=== PATIENT | male | born 1935 | race Caucasian/White ===

== ENCOUNTER 2018-09-16 12:14 | Inpatient (IN) | payer OTHER ==
[~2018-09-16] VITALS: Ht 177.8 cm; Wt 83.0 kg
--- NOTE | 2018-09-16 12:16 | NUR ---
JEFF OLEARY, CURRENTLY AWAITING BED WHICH IS BEING CLEANED
[2018-09-16 12:22] VITALS: BP 130/72
--- NOTE | 2018-09-16 12:55 | NUR ---
brought in [facility] facility reports pt has had frequent falls x weeks fell attempting to get a blanket x yesterday witnessed by room mate pt denies pain---full clear speech, moving all extremities, no facial asymmetry noted at this time ambulatory with assistance (usually on wheelchair)
[2018-09-16 13:23] LABS: APPEARANCE,URINE CLEAR (CLEAR); BILIRUBIN,URINE NEGATIVE (NEGATIVE); BLOOD, URINE 2+ (NEGATIVE); COLOR,URINE YELLOW (YELLOW); LEUKOCYTE ESTERASE ,URINE NEGATIVE (NEGATIVE); NITRITE, URINE NEGATIVE (NEGATIVE); PH,URINE 5.5 (5.0-9.0); UGLUCOSE NEGATIVE (NEGATIVE)
[2018-09-16 13:46] LABS: RBC,URINE 11-20 (MOD) /HPF (0-5); WBC,URINE 0-5 (RARE) /HPF (0-5)
--- NOTE | 2018-09-16 14:14 | NUR ---
LAB AT BEDSIDE.
[2018-09-16 14:34] LABS: BASOPHILS # (AUTO) 0.1 K/uL (0.00-0.22); BASOPHILS % (AUTO) 0.7 % (0.0-2.0); EOSINOPHILS # (AUTO) 0.2 K/uL (0-0.4); EOSINOPHILS % (AUTO) 2.6 % (0.0-4.0); HEMATOCRIT 40.2 % (36-52); HEMOGLOBIN 13.1 g/dL (12.0-18.0); LYMPHOCYTES # (AUTO) 1.4 K/uL (2.0-11.5); LYMPHOCYTES % (AUTO) 16.5 % (20.5-51.1); MEAN CORPUSCULAR HEMOGLOBIN 30 pg (27-31); MEAN CORPUSCULAR HGB CONC 33 g/dL (33-37); MEAN CORPUSCULAR VOLUME 90.4 fL (80-94); MONOCYTES # (AUTO) 0.7 K/uL (0.8-1.0); MONOCYTES % (AUTO) 8.4 % (1.7-9.3); NEUTROPHILS # (AUTO) 6.1 K/uL (1.8-7.7); NEUTROPHILS % (AUTO) 71.8 % (42.2-75.2); PLATELET COUNT (AUTO) 197 K/uL (140-450); RED BLOOD CELL COUNT(AUTO) 4.45 MIL/uL (4.20-6.10); RED CELL DISTRIBUTION WIDTH 15.4 % (11.6-13.7); WHITE BLOOD COUNT (AUTO) 8.5 K/uL (4.8-10.8)
[2018-09-16 14:52] LABS: ALBUMIN 3.7 g/dL (3.4-5.0); ANION GAP 14.9 (8-16); ASPARTATE AMINOTRANSFERASE 10 U/L (15-37); CARBON DIOXIDE 24.8 mmol/L (21-32); CHLORIDE 102 mmol/L (98-107); CREATININE 1.2 mg/dL (0.7-1.3); GLUCOSE 146 mg/dL (74-106); MAGNESIUM 1.7 mg/dL (1.8-2.4); POTASSIUM 4.7 mmol/L (3.5-5.1); SODIUM SERUM 137 mmol/L (136-145); TOTAL BILIRUBIN 0.5 mg/dL (0.0-1.0); URIC ACID 6.4 mg/dL (2.6-7.2)
--- NOTE | 2018-09-16 15:00 | NUR ---
NO NEEDS STATED AT THIS TIME.
[2018-09-16 15:46] LABS: ACETONE, SERUM NEGATIVE (NEGATIVE)
[2018-09-16 15:58] LABS: UREA NITROGEN, BLOOD 24 mg/dL (7-18)
[2018-09-16] MEDS: NACL 0.9% 1,000 ML IV SCH ×2 (16:13→18:45)
[2018-09-16] MEDS ORDERED: INSULIN LISPRO SLIDING SCALE 100 UNITS/ML VIAL SUBQ PRN (16:15)
[2018-09-16] MEDS ORDERED: DEXTROSE 50% 50 ML SYR IVP PRN (16:15)
[2018-09-16] MEDS ORDERED: RANITIDINE HCL PO PRN (16:15)
[2018-09-16] MEDS ORDERED: DOCUSATE SODIUM 100 MG GELCAP PO PRN (16:15)
[2018-09-16] MEDS ORDERED: ONDANSETRON 4 MG/2 ML VIAL IM/IVP PRN (16:15)
--- NOTE | 2018-09-16 16:24 | NUR ---
PATIENT GIVEN ADDITIONAL BLANKET AND URINAL.
[2018-09-16] MEDS: BLOOD GLUCOSE MONITORING 1 DEV DEV FS SCH ×2 (16:30→21:17)
[2018-09-16] MEDS ORDERED: HYDR-5122 PO (16:38)
[2018-09-16] MEDS ORDERED: PYRI-218 PO (16:38)
[2018-09-16] MEDS ORDERED: FERR325E14 PO (16:38)
[2018-09-16] MEDS ORDERED: RANI150T8 PO (16:38)
[2018-09-16] MEDS ORDERED: TAMS0.4C96 PO (16:38)
[2018-09-16] MEDS ORDERED: ATOR20TA PO (16:38)
[2018-09-16] MEDS ORDERED: ASPI-1718 PO (16:38)
[2018-09-16] MEDS ORDERED: LISI40TA4 PO (16:38)
[2018-09-16] MEDS ORDERED: DOCU-299 PO (16:38)
--- NOTE | 2018-09-16 17:18 | NUR ---
PATIENT ARRIVED INTO UNIT FROM ER VIA GURNEY. RECEIVED PT REPORT FROM ER NURSE. 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 PATIENT AAOX 2-3, ABLE TO MAKE NEEDS KNOWN. NO SOB OR RESPIRATORY DISTRESS NOTED. IV SITE ON RIGHT HAND, 20G PATENT AND FLUSHED. SKIN INTACT. VITAL SIGNS ARE FOLLOWS: BP 135/69, RR 18, HR 89, TEMP 97.9 F, O2Sat 100% ON ROOM AIR. SKIN INTACT. NO S/S OF ACUTE DISTRESS ON ROOM AIR. MRSA SWAB DONE. ORIENTED PT TO ROOM AND CALL LIGHT. FALL PRECAUTIONS INITIATED, YELLOW WRIST, YELLOW GOWN, FALL SIGN APPLIED. BED ALARM ON. CALL LIGHT AND PERSONAL ITEMS WITHIN REACH. BED IN LOWEST POSITION, WILL CONTINUE TO MONITOR.
--- NOTE | 2018-09-16 17:24 | NUR ---
Patient will be admitted to care of DR KIM. Admited to MED-SURG. Will go to room 122-B. Belongings list completed. Report to RNHOWARD.
[2018-09-16] MEDS ORDERED: FAMOTIDINE 20 MG TAB PO PRN (17:25)
[2018-09-16] MEDS ORDERED: MAGNESIUM HYDROXIDE 2400 MG/30 ML UDC PO SCH (17:30)
[2018-09-16 17:45] LABS: PHOSPHORUS 3.7 mg/dL (2.5-4.9); THYROID STIMULATING HORMONE 2.48 uIU/mL (0.34-3.74)
[2018-09-16 17:56] VITALS: BP_SYST 135; BP_SYST 139; BP_DIAS 69
--- NOTE | 2018-09-16 18:00 | NUR ---
CALLED [employer] FOR SCD.
--- NOTE | 2018-09-16 18:00 | NUR ---
PT EATING DINNER INDEPENDENTLY. NO S/S OF ACUTE DISTRESS NOTE.
--- NOTE | 2018-09-16 18:10 | NUR ---
PROVIDED PT WITH BEDSIDE COMMODE. PT URINATED X1. PT IS AMB WITH ASSIST. PT RETURNED TO BED SAFELY.
[2018-09-16 18:28] LABS: PROTHROMBIN TIME 9.8 secs (10.8-13.4)
--- NOTE | 2018-09-16 18:35 | NUR ---
PT NOT COOPERATING WITH US TECH. US EXAM STOPPED DURING THE MIDDLE OF EXAM. PT REFUSED THE TEST AT THIS TIME, WILL NOTIFIED .
--- NOTE | 2018-09-16 18:45 | NUR ---
PT REFUSED IVF. EXPLAINED TO PT ABOUT RISK AND BENEFITS. PT STILL REFUSING.
--- NOTE | 2018-09-16 19:30 | NUR ---
ENDORSED PT TO COMBINATION WORKER NURSE. PT IN STABLE CONDITION.
--- NOTE | 2018-09-16 19:31 | NUR ---
RECD. RESTING IN BED, AWAKE, A/OX2, HARD OF HEARING, CONFUSED. IV OF NS AT 60 ML/HR INFUSING, RIGHT HAND G20. BP TAKEN, LYING AND SITTING BUT REFUSED TO STAND UP TO COMPLETE ORTHOSTATIC BP. SAFETY MEASURES ENFORCED. BED ON ALARM. PLAN OF CARE FOR THE SHIFT DISCUSSED. NEEDS REINFORCEMENT. DENIES PAIN 0/10.
--- NOTE | 2018-09-16 19:32 | NUR ---
Patient's Plan of Care was discussed and reviewed with BUSINESS OPERATIONS DIRECTOR: Aliyah RENDON
[2018-09-16 20:00] VITALS: BP 120/80
[2018-09-16 20:02] VITALS: BP 118/67
[2018-09-16 20:30] VITALS: BP 132/69
--- NOTE | 2018-09-16 20:30 | NUR ---
GET OUT OF BED TO USE URINAL WITHOUT CALLING NURSE. FOUND STANDING BY THE BED, HOLDING ON TO SIDES. ASSISTED TO USE URINAL, BACK TO BED AFTER VOIDING. ALLOWED NURSE TO CHECKED BP WHILE STANDING.
[2018-09-16] MEDS ORDERED: FERROUS SULFATE 325 MG TABEC PO SCH (21:00)
[2018-09-16] MEDS: DOCUSATE SODIUM 100 MG GELCAP PO SCH (21:07)
[2018-09-16] MEDS: guaiFENesin 600 MG TABER PO SCH (21:08)
[2018-09-16] MEDS: TAMSULOSIN 0.4 MG CAP PO SCH (21:08)
--- NOTE | 2018-09-16 21:08 | NUR ---
DUE PO MEDICATIONS GIVEN, TOLERATED WELL. SNACK FOR THE NIGHT GIVEN, ATE 100%.
[2018-09-16] MEDS: MAGNESIUM OXIDE 400 MG TAB PO SCH (21:09)
--- NOTE | 2018-09-16 23:30 | NUR ---
FOUND OUT OF BED, SITTING ON THE BSC, HAD A BM. ASSISTED BACK TO BED, SAFETY MAINTAINED.
--- NOTE | 2018-09-17 01:00 | NUR ---
WENT TO BR AGAIN WITHOUT CALLING NURSE, TOOK OFF GOWN. BM ON THE BED AND SOME ON THE SINK. REORIENTED TO HOSPITAL SETTING AND ASSISTED BACK TO BED.
--- NOTE | 2018-09-17 01:40 | NUR ---
INSIDE BR SITTING ON TOILET, ASSISTED BACK TO BED.
[2018-09-17] MEDS: traZODone 50 MG TAB PO SCH ×2 (01:47→01:49)
[2018-09-17] MEDS: HYDROcodone/APAP 5/325 MG 1 TAB TAB PO PRN (01:49)
--- NOTE | 2018-09-17 01:49 | NUR ---
UNABLE TO SLEEP, MEDICATED WITH TRAZODONE ORDERED.
--- NOTE | 2018-09-17 03:30 | NUR ---
STILL GOING OUT OF BED AND SITTING WITH PANTS ON IN THE TOILET BOWL. ASSISTED BACK TO BED, SAFETY MAINTAINED.
--- NOTE | 2018-09-17 03:50 | NUR ---
INFORMED DR. BARBARA SHERIFF DOES NOT WORK FOR PATIENT, WILL ORDER MEDICATION.
--- NOTE | 2018-09-17 05:45 | NUR ---
WENT AGAIN TO BR WITHOUT CALL NURSE. HAD BM, BM ON FLOOR AND TOILET, CLEANSED AND ASSISTED BACK TO BED.
--- NOTE | 2018-09-17 06:00 | NUR ---
CONDITION REMAIN STABLE. SAFETY MAINTAINED DURING SHIFT.
[2018-09-17 06:09] LABS: BASOPHILS # (AUTO) 0.1 K/uL (0.00-0.22); BASOPHILS % (AUTO) 0.8 % (0.0-2.0); EOSINOPHILS # (AUTO) 0.3 K/uL (0-0.4); EOSINOPHILS % (AUTO) 3.7 % (0.0-4.0); HEMATOCRIT 39.8 % (36-52); HEMOGLOBIN 13.1 g/dL (12.0-18.0); LYMPHOCYTES # (AUTO) 1.1 K/uL (2.0-11.5); LYMPHOCYTES % (AUTO) 14.4 % (20.5-51.1); MEAN CORPUSCULAR HEMOGLOBIN 30 pg (27-31); MEAN CORPUSCULAR HGB CONC 33 g/dL (33-37); MEAN CORPUSCULAR VOLUME 89.6 fL (80-94); MONOCYTES # (AUTO) 0.8 K/uL (0.8-1.0); MONOCYTES % (AUTO) 11.1 % (1.7-9.3); NEUTROPHILS # (AUTO) 5.1 K/uL (1.8-7.7); PLATELET COUNT (AUTO) 180 K/uL (140-450); RED BLOOD CELL COUNT(AUTO) 4.44 MIL/uL (4.20-6.10); RED CELL DISTRIBUTION WIDTH 15.2 % (11.6-13.7); WHITE BLOOD COUNT (AUTO) 7.3 K/uL (4.8-10.8)
[2018-09-17 06:39] LABS: ANION GAP 10.9 (8-16); CARBON DIOXIDE 26.9 mmol/L (21-32); CHLORIDE 104 mmol/L (98-107); CREATININE 1.1 mg/dL (0.7-1.3); GLUCOSE 120 mg/dL (74-106); POTASSIUM 4.8 mmol/L (3.5-5.1); SODIUM SERUM 137 mmol/L (136-145); UREA NITROGEN, BLOOD 21 mg/dL (7-18)
[2018-09-17 06:42] LABS: MAGNESIUM 2.2 mg/dL (1.8-2.4); PHOSPHORUS 3.7 mg/dL (2.5-4.9)
--- NOTE | 2018-09-17 07:20 | NUR ---
ENDORSED TO AM SHIFT NURSE FOR CONTINUITY OF CARE.
--- NOTE | 2018-09-17 07:21 | NUR ---
RECEIVED BEDSIDE REPORT FROM STAFF OCCUPATIONAL THERAPIST NURSE. PATIENT AAOX2. PATIENT ON ROOM AIR, NO DISTRESS NOTED. SKIN INTACT. AMBULATES WITH ASSIST, URINAL AT BEDSIDE. PATIENT HARD OF HEARING. SIGNS POSTED. IV ON R WRIST 20 G, CLEAN DRY AND INTACT. FALL RISK PROTOCOL IN PLACE. PATIENT ON MED SURG. BED IN LOW POSITION, CALL LIGHT WITHIN REACH. WILL CONTINUE TO MONITOR.
[2018-09-17] MEDS: BLOOD GLUCOSE MONITORING 1 DEV DEV FS SCH ×4 (07:32→21:09)
[2018-09-17 08:00] VITALS: BP 104/71
--- NOTE | 2018-09-17 08:07 | NUR ---
PATIENT HAS BEEN SCREENED AND CATEGORIZED MODERATE NUTRITION RISK. PATIENT WILL BE SEEN WITHIN 3-5 DAYS OF ADMISSION. 09/19/18LARRY [address]
[2018-09-17] MEDS: NACL 0.9% 1,000 ML IV SCH (08:53)
[2018-09-17] MEDS ORDERED: LISINOPRIL 20 MG TAB PO SCH (09:00)
[2018-09-17] MEDS ORDERED: NON-FORMULARY ITEM (Lisinopril 40 MG) PO SCH (09:00)
[2018-09-17] MEDS: DOCUSATE SODIUM 100 MG GELCAP PO SCH ×2 (09:00→21:10)
[2018-09-17] MEDS ORDERED: ATORVASTATIN 20 MG TAB PO SCH (09:00)
[2018-09-17 09:07] LABS: TRANSFERRIN 256 mg/dL (200-370)
[2018-09-17] MEDS: ASPIRIN 81 MG TAB.CHEW PO SCH (10:11)
[2018-09-17] MEDS: PYRIDOXINE 50 MG TAB PO SCH (10:12)
[2018-09-17] MEDS: MAGNESIUM OXIDE 400 MG TAB PO SCH ×2 (10:13→21:10)
[2018-09-17] MEDS: guaiFENesin 600 MG TABER PO SCH ×2 (10:13→21:10)
[2018-09-17] MEDS: FLUTICASONE NASAL 50 MCG/ACTUATION 16 GM BTL NS SCH (10:14)
--- NOTE | 2018-09-17 10:24 | NUR ---
ADMINISTERED SCHEDULED MEDS. COMMUNICATED WITH PATIENT THROUGH WRITING. PATIENT VERBALIZED UNDERSTANDING. WILL CONTINUE TO MONITOR.
--- NOTE | 2018-09-17 14:27 | NUR ---
CM NOTE PER GILSON OF [facility] PH# [phone], PATIENT IS ON A 7 DAY BED HOLD. GILSON FAXED A COPY OF THE ADVANCE DIRECTIVE WHICH WAS PLACED ON PATIENT'S CHART WHICH STATED THAT INDIVIDUAL DESIGNATED TO MAKE HEALTH CARE DECISIONS: ANKUSH WALLACE OR LEELA WALLACE PH# [phone] AND [phone]. I INFORMED GILSON OF [facility] REGARDING THE ORDER FOR HEARING AID BATTERY AND GILSON CONFIRMED THAT SHE IS AWARE SHE SAID SHE WILL WORK ON IT.
[2018-09-17 15:10] LABS: FERRITIN 34 ng/mL (30-400)
[2018-09-17 16:00] VITALS: BP 147/66
--- NOTE | 2018-09-17 16:00 | NUR ---
PATIENT PULLED OUT IV. IV TIP INTACT. APPLIED DRESSING TO OLD IV SITE. WILL RE INSERT NEW IV.
--- NOTE | 2018-09-17 18:58 | NUR ---
INSERTED NEW IV ON R FA INFUSING NS AT 60. IV CLEAN DRY AND INTACT. PATIENT TOLERATING FLUIDS WELL. WILL CONTINUE TO MONITOR.
--- NOTE | 2018-09-17 19:26 | NUR ---
GAVE REPORT TO BUSINESS CONTINUITY MANAGER NURSE. PATIENT ENDORSED IN STABLE CONDITION.
--- NOTE | 2018-09-17 19:30 | NUR ---
RECEIVED REPORT FROM DAYSHIFT NURSE AT BEDSIDE FOR CONTINUITY OF CARE. PT AAOX3. PT IV NOTED RFA 20G NS 60ML/HR. NO SOB NO S/S OF DISTRESS ON RA. BED LOWERED CALL LIGHT WITHIN REACH WILL CONTINUE TO MONITOR.
[2018-09-17] MEDS: TAMSULOSIN 0.4 MG CAP PO SCH (21:10)
[2018-09-18] VITALS: BP 96/46
--- NOTE | 2018-09-18 00:36 | NUR ---
PT PULLED OUT IV. CHANGED GOWN AND LINENS D/T BLOOD STAINS. NEW IV LFA 22G SALINE LOCK. PER MD JIMENEZ IT IS OK FOR PT TO BE SALINE LOCK THROUGH THE NIGHT WILL CONTINUE TO MONITOR. AND RE START FLUIDS IN THE MORNING.
[2018-09-18] MEDS: NACL 0.9% 1,000 ML IV SCH ×2 (01:33→18:13)
[2018-09-18 06:20] LABS: BASOPHILS % (AUTO) 0.6 % (0.0-2.0); EOSINOPHILS # (AUTO) 0.3 K/uL (0-0.4); EOSINOPHILS % (AUTO) 4.3 % (0.0-4.0); HEMATOCRIT 38.9 % (36-52); HEMOGLOBIN 12.9 g/dL (12.0-18.0); LYMPHOCYTES # (AUTO) 1.1 K/uL (2.0-11.5); LYMPHOCYTES % (AUTO) 15.1 % (20.5-51.1); MEAN CORPUSCULAR HEMOGLOBIN 30 pg (27-31); MEAN CORPUSCULAR HGB CONC 33 g/dL (33-37); MEAN CORPUSCULAR VOLUME 89.7 fL (80-94); MONOCYTES # (AUTO) 0.8 K/uL (0.8-1.0); MONOCYTES % (AUTO) 10.5 % (1.7-9.3); NEUTROPHILS # (AUTO) 5.1 K/uL (1.8-7.7); NEUTROPHILS % (AUTO) 69.5 % (42.2-75.2); PLATELET COUNT (AUTO) 172 K/uL (140-450); RED BLOOD CELL COUNT(AUTO) 4.34 MIL/uL (4.20-6.10); RED CELL DISTRIBUTION WIDTH 15.1 % (11.6-13.7); WHITE BLOOD COUNT (AUTO) 7.4 K/uL (4.8-10.8)
[2018-09-18 06:26] LABS: ANION GAP 6.8 (8-16); CHLORIDE 110 mmol/L (98-107); CREATININE 1.1 mg/dL (0.7-1.3); GLUCOSE 118 mg/dL (74-106); POTASSIUM 4.8 mmol/L (3.5-5.1); SODIUM SERUM 139 mmol/L (136-145); UREA NITROGEN, BLOOD 21 mg/dL (7-18)
[2018-09-18] MEDS: BLOOD GLUCOSE MONITORING 1 DEV DEV FS SCH ×4 (06:30→20:28)
[2018-09-18 06:32] LABS: MAGNESIUM 2.1 mg/dL (1.8-2.4); PHOSPHORUS 3.9 mg/dL (2.5-4.9)
--- NOTE | 2018-09-18 07:26 | NUR ---
ENDORSED REPORT TO DAYSHIFT NURSE AT BEDSIDE FOR CONTINUITY OF CARE.
--- NOTE | 2018-09-18 07:32 | NUR ---
RECEIVED BEDSIDE REPORT FROM TNT POWDER WORKER RN. PT IS AWAKE IN BED, RESPIRATIONS EVEN AND UNLABORED. AOX2. DENIES PAIN AND DISCOMFORT. PT IS AMBULATORY WITH WALKER. SKIN INTACT. IV SITE PATENT AND ASYMPTOMATIC, WILL CONNECT TO IVF PER MD ORDERS. ALL SAFETY PRECAUTIONS IN PLACE, WILL CONTINUE TO MONITOR.
[2018-09-18 08:00] VITALS: BP 121/54
[2018-09-18] MEDS: FLUTICASONE NASAL 50 MCG/ACTUATION 16 GM BTL NS SCH (09:48)
[2018-09-18] MEDS: MAGNESIUM OXIDE 400 MG TAB PO SCH (09:49)
[2018-09-18] MEDS: ASPIRIN 81 MG TAB.CHEW PO SCH (09:49)
[2018-09-18] MEDS: DOCUSATE SODIUM 100 MG GELCAP PO SCH ×2 (09:49→20:26)
[2018-09-18] MEDS: LISINOPRIL 20 MG TAB PO SCH (09:50)
[2018-09-18] MEDS: PYRIDOXINE 50 MG TAB PO SCH (09:50)
[2018-09-18] MEDS: guaiFENesin 600 MG TABER PO SCH ×2 (09:50→20:26)
--- NOTE | 2018-09-18 12:45 | NUR ---
ADMISSION LIASON AT [facility] ([facility]) HAS TAKEN PATIENT'S HEARING AIDES PER PATIENT REQUEST. PT DOES NOT WANT TO LOSE THE HEARING AID AND THE BATTERY IS . PATIENT'S CHOICE [facility] DOES NOT HAVE HEARING AID BATTERY AVAILABLE.
--- NOTE | 2018-09-18 13:05 | NUR ---
PT REQUESTED HIS IV TO BE OFF, EXPLAINED VERY IMPORTANT, PT INSISTED, TALKED TO NURSE GREG TO FOLLOW UP
--- NOTE | 2018-09-18 13:06 | NUR ---
TRY CALLING SON [phone] , PHONE BUSY, PT WANTS TO TALKED SONGERG
--- NOTE | 2018-09-18 14:15 | NUR ---
PATIENT CONTINUES TO REFUSE IVF.
[2018-09-18] MEDS: ACETAMINOPHEN 325 MG TAB PO PRN (14:22)
[2018-09-18 16:00] VITALS: BP 120/59
--- NOTE | 2018-09-18 17:58 | NUR ---
PT CONFUSED AND STATES THAT HEAT TREATER FROM [employer] AGREED TO BRING BATTERIES FOR HEARING AID. RE-ORIENTED PATIENT, TOLD HIM THAT [facility] HEAT TREATER HAS TAKEN HEARING AID FOR SAFE-KEEPING.
--- NOTE | 2018-09-18 19:13 | NUR ---
ENDORSED POC TO MANAGER DIGITAL RN AT BEDSIDE. PT IN STABLE CONDITION.
--- NOTE | 2018-09-18 19:15 | NUR ---
RECEIVED REPORT FROM DAYSHIFT NURSE AT BEDSIDE FOR CONTINUITY OF CARE. PT AAOX3. PT IV NOTED LFA 22G SALINE LOCK. NO SOB NO S/S OF DISTRESS ON RA. BED LOWERED CALL LIGHT WITHIN REACH WILL CONTINUE TO MONITOR
[2018-09-18] MEDS: TAMSULOSIN 0.4 MG CAP PO SCH (20:26)
[2018-09-18 23:40] VITALS: BP 120/54
--- NOTE | 2018-09-19 | NUR ---
PT SLEEPING NO SOB NO S/S OF DISTRESS ON RA.
[2018-09-19 06:15] LABS: BASOPHILS # (AUTO) 0.1 K/uL (0.00-0.22); BASOPHILS % (AUTO) 0.5 % (0.0-2.0); EOSINOPHILS # (AUTO) 0.2 K/uL (0-0.4); EOSINOPHILS % (AUTO) 2.1 % (0.0-4.0); HEMATOCRIT 40.1 % (36-52); HEMOGLOBIN 13.4 g/dL (12.0-18.0); LYMPHOCYTES # (AUTO) 1.5 K/uL (2.0-11.5); LYMPHOCYTES % (AUTO) 15.4 % (20.5-51.1); MEAN CORPUSCULAR HEMOGLOBIN 30 pg (27-31); MEAN CORPUSCULAR HGB CONC 33 g/dL (33-37); MEAN CORPUSCULAR VOLUME 89.9 fL (80-94); NEUTROPHILS # (AUTO) 7.1 K/uL (1.8-7.7); PLATELET COUNT (AUTO) 181 K/uL (140-450); RED BLOOD CELL COUNT(AUTO) 4.45 MIL/uL (4.20-6.10); RED CELL DISTRIBUTION WIDTH 15.4 % (11.6-13.7); WHITE BLOOD COUNT (AUTO) 9.8 K/uL (4.8-10.8)
[2018-09-19] MEDS: HYDROcodone/APAP 5/325 MG 1 TAB TAB PO PRN (06:34)
[2018-09-19] MEDS: BLOOD GLUCOSE MONITORING 1 DEV DEV FS SCH ×2 (06:48→12:13)
--- NOTE | 2018-09-19 06:54 | NUR ---
PLAN OF CARE D/C BACK TO [place] WITH PT.
--- NOTE | 2018-09-19 07:05 | NUR ---
ENDORSED REPORT TO DAYSHIFT NURSE AT BEDSIDE FOR CONTINUITY OF CARE.
--- NOTE | 2018-09-19 07:13 | NUR ---
RECEIVED BEDSIDE REPORT FROM APPLICATION DBA RN. PT IS SLEEPING IN BED, RESPIRATIONS EVEN AND UNLABORED, AROUSABLE BY VOICE. AOX2. DENIES PAIN AND DISCOMFORT. PT IS AMBULATORY WITH WALKER. SKIN INTACT. IV SITE PATENT AND ASYMPTOMATIC, ON SL. IS AWARE. ALL SAFETY PRECAUTIONS IN PLACE, WILL CONTINUE TO MONITOR.
[2018-09-19 07:50] LABS: ANION GAP 16.1 (8-16); CARBON DIOXIDE 21.9 mmol/L (21-32); CHLORIDE 103 mmol/L (98-107); CREATININE 1.2 mg/dL (0.7-1.3); GLUCOSE 114 mg/dL (74-106); SODIUM SERUM 136 mmol/L (136-145); UREA NITROGEN, BLOOD 23 mg/dL (7-18)
[2018-09-19 07:53] LABS: MAGNESIUM 2.3 mg/dL (1.8-2.4); PHOSPHORUS 3.9 mg/dL (2.5-4.9)
[2018-09-19 08:00] VITALS: BP 121/52
[2018-09-19] MEDS: LISINOPRIL 20 MG TAB PO SCH (09:40)
[2018-09-19] MEDS: guaiFENesin 600 MG TABER PO SCH (09:41)
[2018-09-19] MEDS: ASPIRIN 81 MG TAB.CHEW PO SCH (09:41)
[2018-09-19] MEDS: PYRIDOXINE 50 MG TAB PO SCH (09:41)
[2018-09-19] MEDS: FLUTICASONE NASAL 50 MCG/ACTUATION 16 GM BTL NS SCH (09:42)
[2018-09-19] MEDS: DOCUSATE SODIUM 100 MG GELCAP PO SCH (09:42)
[2018-09-19] MEDS: NACL 0.9% 1,000 ML IV SCH (10:01)
[2018-09-19] MEDS ORDERED: FLONAS NS (10:27)
[2018-09-19] MEDS ORDERED: GLUC-805 FS (10:27)
[2018-09-19] MEDS ORDERED: GUAI-791 PO (10:27)
[2018-09-19] MEDS ORDERED: HUMSLIDE SUBQ (10:27)
[2018-09-19] MEDS ORDERED: LISI-420 PO (10:27)
--- NOTE | 2018-09-19 11:59 | NUR ---
1130 CALLED AND SPOKE WITH GILSON AT [facility] AND INFORMED HER THAT PATIENT WILL DISCHARGE BACK TO FACILITY TODAY. PER GILSON PATIENT CAN GO TO ROOM 38B. CLINICALS FAXED TO [phone] AND PHONE [phone]. CALLED [facility] [phone] AND SET UP W/C TRANSPORT AND CANE FLUME WATCHMAN TIME IS 1630. 1200 ASSIGNED NURSE GREG INFORMED OF TRANSFER ARRANGEMENTS.
--- NOTE | 2018-09-19 13:24 | NUR ---
PT REFUSED ECHO ON 09-18-18 STATING HE HAD AN ECHO IN [place]. AGAIN TODAY 09-19-18 HE REPEATED THE SAME STATEMENT SAYING THAT HE ALREADY HAD HIS HEART CHECKED AT [facility] AND THE DOCTOR THERE SAID 'HIS HEART IS OK". HALEY GARZA AND DR. WHITLOCK NOTIFIED.
--- NOTE | 2018-09-19 13:28 | NUR ---
CALLED PERSON TO NOTIFY RAINER RODRIGO [phone] TO NOTIFY HER OF PLAN TO TRANSFER TO [place] AT 1630 TODAY. DISCONNECTED TONE FOR THIS NUMBER. WILL TRY AGAIN LATER.
--- NOTE | 2018-09-19 13:36 | NUR ---
NOTIFIED DR. WHITLOCK OF [facility] IN CHART (DNR).
--- NOTE | 2018-09-19 14:34 | NUR ---
GAVE REPORT FROM FAM DE LEON FROM [facility]. REVIEWED PATIENT'S CC, DX, IMAGING, VITALS, PLAN OF CARE. PT TO RECEIVE FURTHER PT AT [facility]. FAM DE LEON AWARE THAT [facility] COMMUNICATION INSTRUCTOR HAD TAKEN PT'S HEARING AID YESTERDAY. FAM DE LEON VERBALIZE COMPLETE UNDERSTANDING OF ALL D/C TEACHING AND PLAN OF CARE.
--- NOTE | 2018-09-19 14:57 | NUR ---
LEFT MESSAGE FOR SON ANKUSH WOODZ II [phone] REGARDING PLANS TO TRANSFER PT TO [place] AT 1630 TODAY.
[2018-09-19] MEDS: ACETAMINOPHEN 325 MG TAB PO PRN (15:32)
--- NOTE | 2018-09-19 15:33 | NUR ---
MORGAN LECHUGA [facility] [phone] CALLED BACK. REVIEWED D/C TEACHING AND NEW RX AND MED RECON WITH SON. MORGAN LECHUGA VERBALIZED COMPLETE UNDERSTANDING.
--- NOTE | 2018-09-19 16:03 | NUR ---
RECEIVED AUTH# [id number] FROM [facility] AND CALLED TO [facility].
--- NOTE | 2018-09-19 16:30 | NUR ---
PATIENT PICKED UP BY [facility]. ALL PERSONAL BELONGINGS WITH PT. PT IN STABLE CONDITION.
== END 2018-09-19 16:30 | DRG 73 ==
LOC: MED 12:14 → MTU 16:13
PROVIDERS: ADMIT General Practice; ATTEND General Practice
DX: G90.9 Disorder of the autonomic nervous system, unspecified (principal); G93.41 Metabolic encephalopathy; R26.81 Unsteadiness on feet; F03.90 Unspecified dementia, unspecified severity, without behavioral disturbance, psychotic disturbance, mood disturbance, and anxiety; J32.0 Chronic maxillary sinusitis; R31.9 Hematuria, unspecified; D50.9 Iron deficiency anemia, unspecified; E83.42 Hypomagnesemia; I10 Essential (primary) hypertension; E78.5 Hyperlipidemia, unspecified; K21.9 Gastro-esophageal reflux disease without esophagitis; E86.0 Dehydration; N40.0 Benign prostatic hyperplasia without lower urinary tract symptoms; G89.29 Other chronic pain; W18.30XA Fall on same level, unspecified, initial encounter; S70.02XA Contusion of left hip, initial encounter; M16.12 Unilateral primary osteoarthritis, left hip; J32.2 Chronic ethmoidal sinusitis; K59.00 Constipation, unspecified; F28 Other psychotic disorder not due to a substance or known physiological condition; H91.91 Unspecified hearing loss, right ear; E87.8 Other disorders of electrolyte and fluid balance, not elsewhere classified; E11.65 Type 2 diabetes mellitus with hyperglycemia; N28.1 Cyst of kidney, acquired; Z79.82 Long term (current) use of aspirin; Z79.899 Other long term (current) drug therapy; Y93.89 Activity, other specified; Y92.89 Other specified places as the place of occurrence of the external cause; Y99.8 Other external cause status; Z79.84 Long term (current) use of oral hypoglycemic drugs; H26.9 Unspecified cataract
CPT/HCPCS: 36415; 70450; 71045; 73502; 76770; 80048; 80053; 81001; 81003; 82009; 82140; 82150; 82550; 82728; 82948; 83036; 83540; 83690; 83735; 83880; 84100; 84443; 84484; 84550; 85025; 85045; 85610; 85730; 87081; 87086; 87804; 93005; 93880; 97110; 97116; 97530; 99285; J1815; J7030; Q0092

== ENCOUNTER 2019-05-26 15:01 | Inpatient (IN) | payer OTHER ==
[~2019-05-26] VITALS: Ht 165.1 cm; Wt 53.1 kg
[~2019-05-26 15:01] MED LIST: ASPI-1718 PO; DOCU-299 PO; FLONAS NS; GUAI-791 PO; HYDR-5122 PO; LISI-420 PO; PYRI-218 PO; RANI150T8 PO; TAMS0.4C96 PO
[2019-05-26 15:06] VITALS: BP 117/62
[2019-05-26] MEDS ORDERED: NACL 0.9% 500 ML IV SCH (15:10)
[2019-05-26] MEDS ORDERED: LORazepam 2 MG/ML VIAL IVP ONE ×2 (15:10→18:55)
[2019-05-26] MEDS ORDERED: KETOROLAC 30 MG/ML VIAL IVP ONE (15:10)
--- NOTE | 2019-05-26 15:20 | NUR ---
KELSEY W C/O BLADDER DISCOMFORT FROM [facility]. PT IS SCREAMING/YELLING ON ARRIVAL. PT IS ALERT TO NAME, PLACE. PT STATES HE IS UNABLE TO URINATE, BUT HE HAD ALREADY URINATED ON HIMSELF/HIS CLOTHES. ABDOMEN IS SOFT/FLAT, TENDER TO PALPATION IN PUBIC AREA. PT HAX HX OF DEMENTIA. BED IN LOW POSITION, SIDE RAIL UP X2 FOR PT SAFTEY. BEDSIDE STUDIO ASSISTANT & GOWN PLACED ON PT AT THIS TIME.
[2019-05-26] MEDS ORDERED: MULT15LI1 GT (15:22)
[2019-05-26] MEDS ORDERED: ASCO500W4 PO (15:22)
[2019-05-26] MEDS ORDERED: DIT5 PO (15:22)
[2019-05-26] MEDS ORDERED: ZINC220C12 PO (15:22)
[2019-05-26] MEDS ORDERED: ACET-2619 PO (15:22)
--- NOTE | 2019-05-26 15:35 | NUR ---
# 16 FR Neely catheter sterile technique. Immediate return of 400 ml YELLOW urine noted. Bedside drainage bag placed below level of bladder. Urine sample collected and sent to lab. Pt tolerated procedure WELL.
[2019-05-26 15:37] LABS: BASOPHILS % (AUTO) 0.6 % (0.0-2.0); EOSINOPHILS # (AUTO) 0.2 K/uL (0-0.4); EOSINOPHILS % (AUTO) 2.5 % (0.0-4.0); HEMATOCRIT 34.6 % (36-52); HEMOGLOBIN 11.1 g/dL (12.0-18.0); LYMPHOCYTES # (AUTO) 1.6 K/uL (2.0-11.5); LYMPHOCYTES % (AUTO) 22.1 % (20.5-51.1); MEAN CORPUSCULAR HEMOGLOBIN 26 pg (27-31); MEAN CORPUSCULAR HGB CONC 32 g/dL (33-37); MEAN CORPUSCULAR VOLUME 80.6 fL (80-94); MONOCYTES # (AUTO) 0.7 K/uL (0.8-1.0); MONOCYTES % (AUTO) 10.3 % (1.7-9.3); NEUTROPHILS # (AUTO) 4.7 K/uL (1.8-7.7); NEUTROPHILS % (AUTO) 64.5 % (42.2-75.2); PLATELET COUNT (AUTO) 234 K/uL (140-450); RED BLOOD CELL COUNT(AUTO) 4.29 MIL/uL (4.20-6.10); RED CELL DISTRIBUTION WIDTH 19.2 % (11.6-13.7); WHITE BLOOD COUNT (AUTO) 7.2 K/uL (4.8-10.8)
[2019-05-26 16:16] LABS: ANION GAP 14.1 (8-16); CARBON DIOXIDE 22.2 mmol/L (21-32); CHLORIDE 100 mmol/L (98-107); CREATININE 1.2 mg/dL (0.7-1.3); GLUCOSE 135 mg/dL (74-106); POTASSIUM 4.3 mmol/L (3.5-5.1); SODIUM SERUM 132 mmol/L (136-145); UREA NITROGEN, BLOOD 24 mg/dL (7-18)
[2019-05-26 16:19] LABS: PROTHROMBIN TIME 9.5 secs (10.8-13.4)
[2019-05-26 16:31] LABS: ALBUMIN 3.4 g/dL (3.4-5.0); ASPARTATE AMINOTRANSFERASE 11 U/L (15-37); TOTAL BILIRUBIN 0.4 mg/dL (0.0-1.0)
--- NOTE | 2019-05-26 16:50 | NUR ---
PT ASLEEP IN BED, AROUSABLE TO VERBAL STIMULI
[2019-05-26 17:09] LABS: APPEARANCE,URINE CLOUDY (CLEAR); BILIRUBIN,URINE NEGATIVE (NEGATIVE); BLOOD, URINE 2+ (NEGATIVE); COLOR,URINE YELLOW (YELLOW); LEUKOCYTE ESTERASE ,URINE 2+ (NEGATIVE); NITRITE, URINE NEGATIVE (NEGATIVE); UGLUCOSE NEGATIVE (NEGATIVE)
[2019-05-26 17:18] LABS: RBC,URINE 11-20 (MOD) /HPF (0-5)
--- NOTE | 2019-05-26 17:30 | NUR ---
PT LEFT TO CT
[2019-05-26] MEDS ORDERED: LEVOFLOXACIN 500 MG/D5W PREMIX 100 ML IV ONE (17:40)
--- NOTE | 2019-05-26 17:40 | NUR ---
PT RETURNED FROM CT
[2019-05-26] MEDS ORDERED: ACETAMINOPHEN 325 MG TAB PO PRN (18:30)
[2019-05-26] MEDS ORDERED: ONDANSETRON 4 MG/2 ML VIAL IVP PRN (18:30)
--- NOTE | 2019-05-26 18:50 | NUR ---
PT ASLEEP, AROUSABLE TO VERBAL STIMULI
--- NOTE | 2019-05-26 19:22 | NUR ---
Patient will be admitted to care of DR. KIM. Admited to MED SURG. Will go to room 107-B. Belongings list completed. Report to HALEY ROMERO.
[2019-05-26 19:26] LABS: FREE T4 (FREE THYROXINE) 0.82 ng/dL (0.76-1.46); MAGNESIUM 1.8 mg/dL (1.8-2.4); PHOSPHORUS 3.7 mg/dL (2.5-4.9); THYROID STIMULATING HORMONE 3.96 uIU/mL (0.34-3.74)
--- NOTE | 2019-05-26 19:30 | NUR ---
Admitted from ED, with chief complaint of UNABLE TO URINATE, HEMATURIA. Pt is 84 y/o ,Male, Uncooperative, Screaming and Yelling uncontrollably. Asked pt what's wrong, pt continues to scream. Pt's Neely catheter draining well. Pt oriented to call light, bed, phone,television, bathroom, smoking policy, visiting hours, procedures, ID bracelet on. Belongings list checked. Will continue to monitor. Bed alarm turned on.
[2019-05-26] MEDS ORDERED: HYDROcodone/APAP 5/325 MG 1 TAB TAB PO PRN (19:50)
[2019-05-26 20:00] VITALS: BP 116/59
--- NOTE | 2019-05-26 20:25 | NUR ---
INITIAL ASSESSMENT DONE. VITAL SIGNS CHECKED. PT CONTINUES TO SCREAM AND YELL. THEN PT ASKED FOR COFFEE. MEDICATIONS GIVEN INCLUDING PAIN MEDICATION. TEACHINGS PROVIDED. PT ABLE TO SWALLOW MEDICATIONS WELL. PHILLIPS CATHETER DRAINING ADEQUATE AMOUNT OF CLEAR, YELLOW URINE. WILL CONTINUE TO MONITOR.
[2019-05-26] MEDS: OXYBUTYNIN 5 MG TAB PO SCH (20:31)
[2019-05-26] MEDS: DOCUSATE SODIUM 100 MG GELCAP PO SCH (20:32)
[2019-05-26] MEDS ORDERED: TAMSULOSIN 0.4 MG CAP PO SCH (21:00)
[2019-05-26] MEDS ORDERED: DOCUSATE SODIUM 100 MG GELCAP PO SCH (21:00)
[2019-05-26] MEDS ORDERED: cefTRIAXone 500 MG VIAL ONE (22:08)
[2019-05-26] MEDS: OLANZapine 2.5 MG TAB PO SCH (22:20)
[2019-05-26] MEDS: DEXT 5% /NACL 0.9% 1,000 ML IV SCH (22:20)
--- NOTE | 2019-05-26 22:20 | NUR ---
PT STARTED SCREAMING AGAIN. IVF AND IV ANTIBIOTIC STARTED ORDERED. OLANZAPINE GIVEN WELL W/ TEACHINGS. PT ABLE TO SWALLOW THE PILL AND THEN RIGHT AFTER STARTS TO SCREAM AGAIN. PT REPOSITIONED COMFORTABLY. WILL CONTINUE TO MONITOR.
--- NOTE | 2019-05-26 22:45 | NUR ---
SPOKE TO DR HERNANDEZ REGARDING PT'S YELLING AND SCREAMING FOR PAIN. SHE SAID, "I ALREADY ORDERED ZYPREXA." TOLD HER, IT WAS ALREADY GIVEN AND PT IS COMPLAINING OF SEVERE PAIN ON HIS BLADDER. SHE SAID, "OK I'LL PUT ORDER IN."
[2019-05-26] MEDS: HYDROcodone/APAP 7.5/325 MG 1 TAB PO PRN (23:41)
[2019-05-27] MEDS ORDERED: HALOPERIDOL IM 5 MG/ML VIAL IM SCH (00:15)
--- NOTE | 2019-05-27 00:32 | NUR ---
CALLED AND SPOKE TO DR HERNANDEZ REGARDING PT STILL SCREAMING AND YELLING W/ PAIN. SHE SAID " I'LL COME OVER."
[2019-05-27] MEDS ORDERED: MORPHINE SULFATE 2 MG/ML SYR IVP SCH (01:00)
--- NOTE | 2019-05-27 01:20 | NUR ---
HEARD PT'S BED ALARM. SEEN PT TRYING TO GET UP AND TRYING TO PULL OUT HIS PHILLIPS CATHETER. PT ORIENTED TO TIME, PLACE AND EVENT. PT REPOSITIONED FOR COMFORT. AFTERWARDS, PT STARTED TO SLEEP AND SNORE. BED ALARM ON. WILL CONTINUE TO MONITOR.
--- NOTE | 2019-05-27 02:25 | NUR ---
PT'S BED ALARMED. PT'S GOWN OFF, PT TRYING TO GET UP AND PULL HIS PHILLIPS CATHETER. PT REORIENTED AND REPOSITIONED IN BED. BED ALARM TURNED ON. WILL CONTINUE TO MONITOR.
[2019-05-27 04:20] VITALS: BP 129/58
--- NOTE | 2019-05-27 04:30 | NUR ---
SEEN PT SLEEPING COMFORTABLY BUT AROUSABLE TO TOUCH AND MOVEMENT. VITAL SIGNS CHECKED. NO DISCOMFORT NOTED. BED ALARM REMAINS ON. WILL CONTINUE TO MONITOR.
--- NOTE | 2019-05-27 06:50 | NUR ---
PT STARTED SCREAMING AND YELLING NOW TRYING TO GET UP. PT SAYING HE'S IN PAIN. PT MEDICATED W/ MORPHINE IVPX1 ORDERED. WILL REASSESS BEHAVIOR DUE TO PAIN. WILL ENDORSE CARE TO DAYSHIFT NURSE.
[2019-05-27] MEDS ORDERED: HYDROcodone/APAP 5/325 MG 1 TAB TAB PO PRN (07:05)
--- NOTE | 2019-05-27 07:24 | NUR ---
RECEIVED REPORT FROM MUSIC REHABILITATION THERAPIST NURSE/ PT IS AAOX1. PT IV IN THE LEFT FA 20G RUNNING D5NS AT 80ML/HR. PT SKIN IS INTACT. PT EXHIBITING SIGNS OF CONFUSION. PT BED ALARM ACTIVATED FOR SAFETY. ATTEMPTED TO EXPLAIN POC TO PT BUT PT SEEMS WITHDRAWN AND CONFUSED. WILL ROUND FREQUENTLY ON PT. BED IN LOW POSITION, CALL LIGHT WITHIN REACH.
[2019-05-27 07:44] LABS: BASOPHILS % (AUTO) 0.7 % (0.0-2.0); EOSINOPHILS # (AUTO) 0.3 K/uL (0-0.4); EOSINOPHILS % (AUTO) 5.3 % (0.0-4.0); HEMATOCRIT 33.2 % (36-52); HEMOGLOBIN 10.6 g/dL (12.0-18.0); LYMPHOCYTES # (AUTO) 0.8 K/uL (2.0-11.5); LYMPHOCYTES % (AUTO) 12.7 % (20.5-51.1); MEAN CORPUSCULAR HEMOGLOBIN 26 pg (27-31); MEAN CORPUSCULAR HGB CONC 32 g/dL (33-37); MEAN CORPUSCULAR VOLUME 81.2 fL (80-94); MONOCYTES # (AUTO) 0.7 K/uL (0.8-1.0); MONOCYTES % (AUTO) 12.2 % (1.7-9.3); NEUTROPHILS # (AUTO) 4.1 K/uL (1.8-7.7); NEUTROPHILS % (AUTO) 69.1 % (42.2-75.2); PLATELET COUNT (AUTO) 209 K/uL (140-450); RED BLOOD CELL COUNT(AUTO) 4.09 MIL/uL (4.20-6.10); RED CELL DISTRIBUTION WIDTH 19.1 % (11.6-13.7)
[2019-05-27 07:58] LABS: ANION GAP 12.1 (8-16); CARBON DIOXIDE 24.6 mmol/L (21-32); CHLORIDE 104 mmol/L (98-107); CREATININE 1.1 mg/dL (0.7-1.3); GLUCOSE 99 mg/dL (74-106); POTASSIUM 4.7 mmol/L (3.5-5.1); SODIUM SERUM 136 mmol/L (136-145); UREA NITROGEN, BLOOD 23 mg/dL (7-18)
[2019-05-27 08:00] VITALS: BP 123/52
[2019-05-27 08:09] LABS: MAGNESIUM 1.8 mg/dL (1.8-2.4); PHOSPHORUS 3.3 mg/dL (2.5-4.9)
--- NOTE | 2019-05-27 08:22 | NUR ---
PATIENT HAS BEEN SCREENED AND CATEGORIZED HIGH NUTRITION RISK. PATIENT WILL BE SEEN WITHIN 1-2 DAYS OF ADMISSION. 05/27/19-05/28/[address]
--- NOTE | 2019-05-27 09:28 | NUR ---
WAS NOT ABLE TO ADMINISTER SCHEDULED MEDS TO PT. PT VERY DROWSY. WILL ATTEMPT AGAIN LATER.
[2019-05-27] MEDS: DEXT 5% /NACL 0.9% 1,000 ML IV SCH (10:57)
--- NOTE | 2019-05-27 11:47 | NUR ---
PT STILL DROWSY. WILL REATTEMPT HORSE RANCHER LATER.
[2019-05-27] MEDS: LISINOPRIL 20 MG TAB PO SCH (12:43)
[2019-05-27] MEDS: LACTOBACILLUS RHAMNOSUS GG 1 EACH CAP PO SCH (12:43)
[2019-05-27] MEDS: ASPIRIN 81 MG TAB.CHEW PO SCH (12:43)
[2019-05-27] MEDS: ZINC SULF 220 MG CAP PO SCH (12:43)
[2019-05-27] MEDS: PHENAZOPYRIDINE 100 MG TAB PO SCH ×3 (12:43→17:40)
[2019-05-27] MEDS: DOCUSATE SODIUM 100 MG GELCAP PO SCH ×2 (12:44→21:38)
[2019-05-27] MEDS: ASCORBIC ACID 500 MG TAB PO SCH (12:44)
--- NOTE | 2019-05-27 12:51 | NUR ---
1300 SCHEDULED PYRIDIUM NOT ADMINISTERED DUE TO ADMINISTERING MORNING MEDS AT 1250. PT TOLERATED ALL MORNING MEDS FINE. NO SWALLOWING DIFFICULTY. WILL CONTINUE TO ROUND FREQUENTLY ON PT.
--- NOTE | 2019-05-27 13:04 | NUR ---
DC'D ALAN PER MD ORDERS. WILL ASSESS PT FOR URINATION ABILITY. PT VERY AGITATED AT THIS TIME. MD ORDERED ATIVAN IV TO CALM PT. WILL ADMIN.
[2019-05-27] MEDS: LORazepam 2 MG/ML VIAL IVP PRN ×2 (13:30→22:04)
--- NOTE | 2019-05-27 15:33 | NUR ---
05/27/19 RD INITIAL ASSESSMENT COMPLETED PLEASE REFER TO NUTRITION ASSESSMENT UNDER CARE ACTIVITY FOR ESTIMATED NUTRITIONAL NEEDS. 1. CONTINUE PUREE REGULAR DIET TOLERATED 2. RECOMMEND ENSURE BID 3. RD TO FOLLOW-UP 2-3 DAYS, HIGH RISK LARRY FORTUNE RD
--- NOTE | 2019-05-27 15:44 | NUR ---
PT WAS YELLING OUT. WENT TO CHECK ON PT. DID BLADDER SCAN ON PT. SCAN SHOWING 263ML. MD AWARE OF FINDINGS. WILL REASSESS BLADDER IN 1HR. PER MD ORDERS, WILL GIVE NORCO FOR PAIN.
[2019-05-27] MEDS ORDERED: DEXT 5% /NACL 0.9% 1,000 ML IV SCH (15:45)
--- NOTE | 2019-05-27 15:52 | NUR ---
WENT TO GIVE PAIN MEDS TO PT. PT SLEEPING IN BED. WILL HOLD MEDS UNTIL PT EXHIBITS NEED FOR PAIN MEDS.
[2019-05-27 16:00] VITALS: BP 136/78
[2019-05-27] MEDS: NACL 0.9% 1,000 ML IV SCH (17:35)
[2019-05-27] MEDS: HYDROcodone/APAP 7.5/325 MG 1 TAB PO PRN (18:22)
--- NOTE | 2019-05-27 18:58 | NUR ---
PT RESTING IN BED. ALL NEEDS MET. WILL CONTINUE TO ROUND FREQUENTLY ON PT.
--- NOTE | 2019-05-27 19:22 | NUR ---
ENDORSED PT TO MEDICAL OFFICE SPECIALIST FOR CONTINUITY OF CARE. PT IN STABLE CONDITION AT THIS TIME.
--- NOTE | 2019-05-27 20:00 | NUR ---
ASSUMED CARE. RECEIVED AWAKE,CONFUSED. AFEBRILE, NOT IN ACUTE DISTRESS. NO PAIN OR DISCOMFORT NOTED. VS STABLE, WILL CONTINUE TO MONITOR. NEEDS ATTENDED.
[2019-05-27] MEDS: OXYBUTYNIN 5 MG TAB PO SCH (21:36)
[2019-05-27] MEDS: OLANZapine 2.5 MG TAB PO SCH (21:36)
[2019-05-27] MEDS: TAMSULOSIN 0.4 MG CAP PO SCH (21:37)
--- NOTE | 2019-05-27 21:43 | NUR ---
DUE MEDICATIONS GIVEN SCHEDULED.
--- NOTE | 2019-05-27 22:04 | NUR ---
PT.VERY RESTLESS. RIPPED HIS IV TUBING OFF AND TRIED GETTING OUT OF BED. ATIVAN 2 MG IVP GIVEN ORDERED.
[2019-05-28] VITALS: BP 114/63
--- NOTE | 2019-05-28 | NUR ---
ASLEEP, NOT IN ANY KIND OF DISTRESS. NO PAIN OR DISCOMFORT NOTED. CT OF [place] TO BE DONE AT 0630 PER LOG STACKER OPERATOR TOBIAS. OK WITH RESIDENT DIRECTOR OF STRATEGIC PROGRAMS. PT.REMAINS STABLE.
--- NOTE | 2019-05-28 05:20 | NUR ---
AM LABS DRAWN BY GEEK SQUAD MANAGER.
--- NOTE | 2019-05-28 06:40 | NUR ---
PT. VERY CONFUSED, PULLED OUT IV LINE. GAUGE 18 IV LINE ESTABLISHED TO THE LEFT WRIST.
[2019-05-28 06:41] LABS: ANION GAP 14.2 (8-16); CARBON DIOXIDE 24.1 mmol/L (21-32); CHLORIDE 108 mmol/L (98-107); GLUCOSE 112 mg/dL (74-106); POTASSIUM 5.3 mmol/L (3.5-5.1); SODIUM SERUM 141 mmol/L (136-145); UREA NITROGEN, BLOOD 15 mg/dL (7-18)
[2019-05-28 06:55] LABS: MAGNESIUM 1.8 mg/dL (1.8-2.4); PHOSPHORUS 3.9 mg/dL (2.5-4.9)
[2019-05-28] MEDS: LORazepam 2 MG/ML VIAL IVP PRN (06:55)
--- NOTE | 2019-05-28 06:55 | NUR ---
ATIVAN 2 MG IVP GIVEN FOR AGITATION/RESTLESSNESS.
[2019-05-28 07:10] LABS: BASOPHILS % (AUTO) 0.5 % (0.0-2.0); EOSINOPHILS # (AUTO) 0.1 K/uL (0-0.4); EOSINOPHILS % (AUTO) 0.9 % (0.0-4.0); HEMATOCRIT 37.4 % (36-52); LYMPHOCYTES # (AUTO) 1.2 K/uL (2.0-11.5); LYMPHOCYTES % (AUTO) 13.2 % (20.5-51.1); MEAN CORPUSCULAR HEMOGLOBIN 26 pg (27-31); MEAN CORPUSCULAR HGB CONC 32 g/dL (33-37); MEAN CORPUSCULAR VOLUME 81.3 fL (80-94); MONOCYTES # (AUTO) 0.8 K/uL (0.8-1.0); MONOCYTES % (AUTO) 8.7 % (1.7-9.3); NEUTROPHILS # (AUTO) 6.8 K/uL (1.8-7.7); NEUTROPHILS % (AUTO) 76.7 % (42.2-75.2); PLATELET COUNT (AUTO) 242 K/uL (140-450); RED CELL DISTRIBUTION WIDTH 18.7 % (11.6-13.7); WHITE BLOOD COUNT (AUTO) 8.9 K/uL (4.8-10.8)
--- NOTE | 2019-05-28 07:42 | NUR ---
ENDORSED CARE TO DELVIN DE LEON.
--- NOTE | 2019-05-28 07:46 | NUR ---
RECEIVED BEDSIDE REPORT FROM NATIONAL SALES DIRECTOR RN FOR CONTINUITY OF CARE FROM YESTERDAY. PT IN STABLE CONDITION. BED IN LOW POSITION, CALL LIGHT WITHIN REACH. WILL ROUND FREQUENTLY ON PT.
[2019-05-28 08:25] VITALS: BP 106/85
--- NOTE | 2019-05-28 09:34 | NUR ---
MORNING MEDS NOT ADMINISTERED DUE TO PT BEING VERY SLEEPY. ATIVAN GIVEN BY HYDRANT SETTER. WILL CONTINUE TO ROUND FREQUENTLY ON TP. WILL RETRY TO ADMIN MEDS LATER. BED IN LOW POSITION, CALL LIGHT WITHIN REACH.
[2019-05-28] MEDS: ZINC SULF 220 MG CAP PO SCH (11:06)
[2019-05-28] MEDS: ASPIRIN 81 MG TAB.CHEW PO SCH (11:07)
[2019-05-28] MEDS: DOCUSATE SODIUM 100 MG GELCAP PO SCH ×2 (11:07→20:55)
[2019-05-28] MEDS: LISINOPRIL 20 MG TAB PO SCH (11:07)
[2019-05-28] MEDS: LACTOBACILLUS RHAMNOSUS GG 1 EACH CAP PO SCH (11:07)
[2019-05-28] MEDS: ASCORBIC ACID 500 MG TAB PO SCH (11:07)
[2019-05-28] MEDS: PHENAZOPYRIDINE 100 MG TAB PO SCH ×2 (11:16→13:00)
--- NOTE | 2019-05-28 11:32 | NUR ---
ADMINISTERED MORNING MEDS TO PT WITH SPEECH THERAPIST AT BEDSIDE. SPEECH THERAPIST HERE TO COMPLETE SWALLOW EVAL ON PT. PT HAD DIFFICULTY SWALLOWING MEDS. NO CHOKING WAS NOTED BUT PT HELD MEDS IN MOUTH FOR 35MINS. HAD DIFFICULTY HAVING PT SWALLOW PILLS. AWARE. ORDERED TO GIVE PT MEDS ONLY WHEN FULLY AWAKE AND COOPERATIVE.
--- NOTE | 2019-05-28 11:55 | NUR ---
CHANNEL CEMENTER OUTSOLE MACHINE note [phone]. Bedside swallow evaluation completed, please see report for details. CHANNEL CEMENTER OUTSOLE MACHINE provided pt with education regarding purpose of evaluation and rationale for recommendations. Pt primarily lethargic with limited responses. No family/caregivers present. Recommend: 1) pureed textures 2) thin liquids 3) STRICT aspiration precautions (including pt must be fully awake/alert/upright for any PO intakes, alternate small/slow bites and sips, stop giving PO if pt becomes less alert/SOB/coughing) 4) CHANNEL CEMENTER OUTSOLE MACHINE to f/u for dysphagia therapy to continue to assess pt's ability to take PO safely for 1-2 x week x 2 weeks, as pt willing/able to participate safely, as appropriate CHANNEL CEMENTER OUTSOLE MACHINE d/w RN (Sally) prior to and following evaluation completion. RN present to administer oral medications (whole in pudding) during more than half of swallow evaluation. Pt was positioned fully upright in bed using HOB elevation and bed tilt functions for evaluation and then returned to low/locked bed position with HOB about 40 degrees following evaluation completion.
--- NOTE | 2019-05-28 12:52 | NUR ---
SCREEN FOR LOW ROXANNE SCALE AT RISK, CONTINUE TO FOLLOW PRESSURE ULCER PREVENTION INTERVENTIONS. -TURN AND REPOSITION PATIENT Q 2H -ASSESS AND MONITOR SKIN CONDITION DURING POSITION CHANGE -OFFLOAD BILATERAL HEELS BY PLACING PILLOWS UNDER CALVES AT ALL TIMES, UNLESS OTHERWISE CONTRAINDICATED -PRESSURE REDISTRIBUTION BY PLACING PILLOWS AND OFFLOADING SACRALCOCCYX -KEEP SKIN CLEAN AND DRY AT ALL TIMES.
--- NOTE | 2019-05-28 13:47 | NUR ---
PT SLEEPING IN BED. ALL NEEDS MET. NO SIGNS OF PAIN OR DISTRESS. WILL CONTINUE TO ROUND FREQUENTLY ON PT.
[2019-05-28 15:16] LABS: FOLIC ACID 9.9 ng/mL (>3.0)
--- NOTE | 2019-05-28 15:34 | NUR ---
PT SLEEPING. ALL NEEDS MET. WILL NOT ADMINISTER MEDS UNTIL PT IS FULLY AWARE NAD COOPERATIVE. MD AWARE
[2019-05-28] MEDS ORDERED: LACTULOSE 20 GM/30 ML UDC PO SCH (15:40)
[2019-05-28 16:00] VITALS: BP 132/69
[2019-05-28] MEDS: NACL 0.9% 1,000 ML IV SCH (16:25)
[2019-05-28 16:31] LABS: CARBON DIOXIDE 24.3 mmol/L (21-32); CHLORIDE 106 mmol/L (98-107); GLUCOSE 101 mg/dL (74-106); POTASSIUM 4.3 mmol/L (3.5-5.1); SODIUM SERUM 140 mmol/L (136-145); UREA NITROGEN, BLOOD 14 mg/dL (7-18)
--- NOTE | 2019-05-28 17:47 | NUR ---
PT ASLEEP. ALL NEEDS MET. BED LINENS CHANGED. WILL CONTINUE TO ROUND ON PT.
[2019-05-28] MEDS ORDERED: PHENAZOPYRIDINE 100 MG TAB PO SCH (18:00)
[2019-05-28] MEDS: CHLORHEXADINE GLUC 2% CLOTH TP SCH (18:20)
[2019-05-28] MEDS: MUPIROCIN CA NASAL 2% 1GM TUBE NS SCH (18:20)
[2019-05-28] MEDS ORDERED: HALOPERIDOL IM 5 MG/ML VIAL IM ONE (18:35)
--- NOTE | 2019-05-28 18:49 | NUR ---
SPOKE WITH . WILL HOLD HALDOL IM ORDER STANDING ORDER FOR EXTREME NEED. PT CALM AT THIS TIME AND NO NEED TO GIVE MEDICATION. WILL ENDORSE TO EMBEDDED SYSTEMS DESIGNER TO ONLY GIVE MED IF PT IS TRYING TO GET OUT OF BED AND RISK OF INJURY.
--- NOTE | 2019-05-28 19:34 | NUR ---
ENDORSED PT TO DIRECTOR RADIATION ONCOLOGY FOR CONTINUITY OF CARE. PT IN STABLE CONDITION AT THIS TIME.
--- NOTE | 2019-05-28 20:00 | NUR ---
RECEIVED REPORT FROM AM SHIFT. PT IS AWAKE ALERT X2, PT IS CONFUSED,FOLLOW SIMPLE COMMAND, NO S/S OF PAIN OR DISCOMFORT AT THIS TIME. NO S/S OF RESP DISTRESS,NO SOB. CONT ON ROOM AIR. BILATERAL LUNG SOUND CLEAR.ABD SOFT NON DISTENDED. IV LINE TO LFA NO 20 GAUGE INTACT WELL. IV NS AT 30 CC/HR. CONTINUE ON SITTER WATCH.NO EPISODE TRYING TO OUT OF BED AT THIS TIME.SKIN WARM TO TOUCH. V/S T 99.5,B/P 100/58,HR 88,R 20 SPO2 97%. SKIN INTACT,PT IS INCONTINENT BOWEL AND BLADDER.GENTLE CARE GIVEN . KEPT CLEAN AND DRY.
[2019-05-28] MEDS: OXYBUTYNIN 5 MG TAB PO SCH (20:55)
[2019-05-28] MEDS: TAMSULOSIN 0.4 MG CAP PO SCH (20:55)
[2019-05-28] MEDS: OLANZapine 2.5 MG TAB PO SCH (21:01)
--- NOTE | 2019-05-28 21:30 | NUR ---
ROUTINE NIGHT MEDS GIVEN. PT TOOK ALL MEDS PO TOLERATED. WELL, NO S/S OF ASPIRATION. HEPARIN INJECTION GIVEN TO RIGHT LOWER ABD. NO S/S OF BLEEDING,NO HEMATURIA NOTED.
--- NOTE | 2019-05-28 22:00 | NUR ---
REPOSITION PT TO RIGHT SIDE. PT HAS URINATE X1. GOOD PERNELL CARE GIVEN.KEPT CLEAN AND DRY.
[2019-05-29] VITALS: BP 118/58
--- NOTE | 2019-05-29 00:30 | NUR ---
PT SLEEP GOOD.
--- NOTE | 2019-05-29 04:30 | NUR ---
AM CARE CARE GIVEN. REPOSITION PT FOR COMFORT. NO EPISODE OF AGITATION AT THIS TIME.
--- NOTE | 2019-05-29 05:00 | NUR ---
AM CARE GIVEN. BLOOD DRAWN FOR CBC,BMP,MAG AND PHOS.
[2019-05-29 06:22] LABS: ANION GAP 13.8 (8-16); CARBON DIOXIDE 25.7 mmol/L (21-32); CHLORIDE 106 mmol/L (98-107); CREATININE 1.2 mg/dL (0.7-1.3); GLUCOSE 133 mg/dL (74-106); POTASSIUM 4.5 mmol/L (3.5-5.1); SODIUM SERUM 141 mmol/L (136-145); UREA NITROGEN, BLOOD 21 mg/dL (7-18)
[2019-05-29 06:26] LABS: MAGNESIUM 1.7 mg/dL (1.8-2.4)
[2019-05-29 06:38] LABS: BASOPHILS % (AUTO) 0.3 % (0.0-2.0); EOSINOPHILS % (AUTO) 0.2 % (0.0-4.0); HEMATOCRIT 36.2 % (36-52); HEMOGLOBIN 11.5 g/dL (12.0-18.0); LYMPHOCYTES # (AUTO) 1.2 K/uL (2.0-11.5); LYMPHOCYTES % (AUTO) 9.9 % (20.5-51.1); MEAN CORPUSCULAR HEMOGLOBIN 25 pg (27-31); MEAN CORPUSCULAR HGB CONC 32 g/dL (33-37); MEAN CORPUSCULAR VOLUME 80.1 fL (80-94); MONOCYTES # (AUTO) 1.3 K/uL (0.8-1.0); MONOCYTES % (AUTO) 11.4 % (1.7-9.3); NEUTROPHILS # (AUTO) 9.2 K/uL (1.8-7.7); NEUTROPHILS % (AUTO) 78.2 % (42.2-75.2); PLATELET COUNT (AUTO) 237 K/uL (140-450); RED BLOOD CELL COUNT(AUTO) 4.52 MIL/uL (4.20-6.10); RED CELL DISTRIBUTION WIDTH 18.6 % (11.6-13.7); WHITE BLOOD COUNT (AUTO) 11.8 K/uL (4.8-10.8)
--- NOTE | 2019-05-29 07:17 | NUR ---
REPORT GIVEN TO AM SHIFT. PT IS SLEEPING AT THIS TIME , NO EPISODE AGITATION AT NOC SHIFT.
[2019-05-29 08:00] VITALS: BP 110/64
[2019-05-29] MEDS: DOCUSATE SODIUM 100 MG GELCAP PO SCH (09:00)
--- NOTE | 2019-05-29 09:00 | NUR ---
PT NOT GIVEN DOCUSATE SODIUM CAPSULE DUE TO SWALLOW PRECAUTIONS. PHARMACY NOTED. WILL CHANGE TO LIQUID [id number]
[2019-05-29] MEDS: ASPIRIN 81 MG TAB.CHEW PO SCH (09:03)
[2019-05-29] MEDS: LACTOBACILLUS RHAMNOSUS GG 1 EACH CAP PO SCH (09:04)
[2019-05-29] MEDS: ASCORBIC ACID 500 MG TAB PO SCH (09:05)
[2019-05-29] MEDS: LISINOPRIL 20 MG TAB PO SCH (09:05)
[2019-05-29] MEDS: ZINC SULF 220 MG CAP PO SCH (09:07)
[2019-05-29] MEDS ORDERED: DOCUSATE 100 MG/10 ML UDC GT SCH (10:21)
--- NOTE | 2019-05-29 11:17 | NUR ---
Metal Flow Coordinator Note: I called and spoke with patients son Mayco LEIGH Stephanie . He stated he would like patient to return to [facility] upon discharge. He stated patient has been at other [facility] before and Mayco likes [facility]. He confirmed that he and Nahomi Brown are patient's health care decision makers.
[2019-05-29] MEDS ORDERED: MAG SULF 2000 MG/WATER PREMIX 50 ML IV SCH (11:30)
--- NOTE | 2019-05-29 12:22 | NUR ---
Pt resting in bed. No signs of discomfort. Call light within reach.
--- NOTE | 2019-05-29 13:36 | NUR ---
05/29/19 RD FOLLOW UP COMPLETED PLEASE REFER TO NUTRITION ASSESSMENT UNDER CARE ACTIVITY FOR ESTIMATED NUTRITIONAL NEEDS. 1. CONTINUE PUREE REGULAR DIET TOLERATED 2. CONTINUE ENSURE BID 3. RD TO FOLLOW-UP 3-5 DAYS, MODERATE RISK LARRY FORTUNE RD
[2019-05-29 14:01] LABS: BASOPHILS # (AUTO) 0.1 K/uL (0.00-0.22); BASOPHILS % (AUTO) 0.5 % (0.0-2.0); EOSINOPHILS % (AUTO) 0.2 % (0.0-4.0); HEMATOCRIT 36.8 % (36-52); HEMOGLOBIN 11.8 g/dL (12.0-18.0); LYMPHOCYTES # (AUTO) 0.9 K/uL (2.0-11.5); LYMPHOCYTES % (AUTO) 7.1 % (20.5-51.1); MEAN CORPUSCULAR HEMOGLOBIN 26 pg (27-31); MEAN CORPUSCULAR HGB CONC 32 g/dL (33-37); MEAN CORPUSCULAR VOLUME 79.7 fL (80-94); MONOCYTES % (AUTO) 8.3 % (1.7-9.3); NEUTROPHILS # (AUTO) 10.2 K/uL (1.8-7.7); NEUTROPHILS % (AUTO) 83.9 % (42.2-75.2); PLATELET COUNT (AUTO) 231 K/uL (140-450); RED BLOOD CELL COUNT(AUTO) 4.62 MIL/uL (4.20-6.10); RED CELL DISTRIBUTION WIDTH 18.7 % (11.6-13.7); WHITE BLOOD COUNT (AUTO) 12.2 K/uL (4.8-10.8)
--- NOTE | 2019-05-29 14:46 | NUR ---
Pt resting in bed. No signs of distress. Sitter by pt. Call light within reach.
--- NOTE | 2019-05-29 15:56 | NUR ---
Pt resting in bed. No signs of distress. Sitter by pt. Call light within reach.
[2019-05-29 16:00] VITALS: BP 138/89
[2019-05-29] MEDS: NACL 0.9% 1,000 ML IV SCH (16:25)
[2019-05-29] MEDS: CHLORHEXADINE GLUC 2% CLOTH TP SCH (17:36)
[2019-05-29] MEDS: MUPIROCIN CA NASAL 2% 1GM TUBE NS SCH (17:45)
--- NOTE | 2019-05-29 19:32 | NUR ---
Report given to night shift supervisor nurse. Pt is resting in bed. No signs of distress. Sitter by bedside. Call light within reach.
--- NOTE | 2019-05-29 19:33 | NUR ---
RECEIVED REPORT FROM DAY RN. PT IS AWAKE ALERT X1, PT IS CONFUSED,FOLLOW SIMPLE COMMAND, NO S/S OF PAIN OR DISCOMFORT AT THIS TIME. PT IS ON ROOM AIR. RESPIRATIONS ARE EQUAL AND UNLABORED. IV ON LFA 20 GAUGE INTACT WELL. IV NS AT 30 CC/HR. 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 HAS 1:1 SITTER.SKIN WARM TO TOUCH. SKIN INTACT,PT IS INCONTINENT BOWEL AND BLADDER.GENTLE CARE GIVEN . KEPT CLEAN AND DRY. SAFETY MEASURES ARE IN PLACE. WILL ROUND FREQUENTLY.
[2019-05-29] MEDS: TAMSULOSIN 0.4 MG CAP PO SCH (20:28)
[2019-05-29] MEDS: OLANZapine 2.5 MG TAB PO SCH (20:28)
[2019-05-29] MEDS: OXYBUTYNIN 5 MG TAB PO SCH (20:28)
[2019-05-29] MEDS: DOCUSATE 100 MG/10 ML UDC GT SCH (20:28)
--- NOTE | 2019-05-29 20:28 | NUR ---
ADMINISTERED NEDRA MEDICATION CRUSHED WITH JELLO PT TOLERATED WELL. PT REFUSING HEPARIN. EDUCATED PT ON REASON. PT STATES, "NO I DON'T WANT INJECTION I AM GOING TO FIGHT YOU AND CALL MY SON AND 911." PT CONFUSED AND A LITTLE AGITATED. WILL HOLD HEPARIN.
--- NOTE | 2019-05-29 22:19 | NUR ---
ROCEPHIN NOW INFUSING PER ORDERS. OLD ORDER FOR HALDOL ON 05/28 NOT GIVEN
--- NOTE | 2019-05-29 23:40 | NUR ---
VITAL SIGNS ARE WITHIN NORMAL LIMITS. ALL NEEDS MET AT THIS TIME. 1:1 SITTER WILL CONTINUE TO MONITOR.
[2019-05-30] VITALS: BP 122/68
--- NOTE | 2019-05-30 00:16 | NUR ---
VITAL SIGNS ARE WITHIN NORMAL LIMITS. ALL NEEDS MET AT THIS TIME. CALL LIGHT IS WITHIN REACH. WILL CONTINUE TO MONITOR. PT WITH 1:1 SITTER
--- NOTE | 2019-05-30 02:12 | NUR ---
PATIENT IS SLEEPING COMFORTABLY IN BED. CHEST RISE AND FALL. PT WITH 1:1 SITTER. SAFETY MEASURES ARE IN PLACE. WILL CONTINUE TO MONITOR.
--- NOTE | 2019-05-30 03:47 | NUR ---
ROUNDS MADE. PT IS SLEEPING COMFORTABLY IN BED. CHEST RISE AND FALL. SAFETY MEASURES ARE IN PLACE. 1:1 SITTER WILL CONTINUE TO MONITOR.
[2019-05-30 06:38] LABS: BASOPHILS % (AUTO) 0.2 % (0.0-2.0); EOSINOPHILS # (AUTO) 0.1 K/uL (0-0.4); EOSINOPHILS % (AUTO) 0.7 % (0.0-4.0); HEMATOCRIT 35.8 % (36-52); HEMOGLOBIN 11.5 g/dL (12.0-18.0); LYMPHOCYTES # (AUTO) 1.3 K/uL (2.0-11.5); LYMPHOCYTES % (AUTO) 10.5 % (20.5-51.1); MEAN CORPUSCULAR HEMOGLOBIN 26 pg (27-31); MEAN CORPUSCULAR HGB CONC 32 g/dL (33-37); MEAN CORPUSCULAR VOLUME 79.9 fL (80-94); MONOCYTES # (AUTO) 1.1 K/uL (0.8-1.0); MONOCYTES % (AUTO) 8.9 % (1.7-9.3); NEUTROPHILS # (AUTO) 9.9 K/uL (1.8-7.7); NEUTROPHILS % (AUTO) 79.7 % (42.2-75.2); PLATELET COUNT (AUTO) 222 K/uL (140-450); RED BLOOD CELL COUNT(AUTO) 4.48 MIL/uL (4.20-6.10); RED CELL DISTRIBUTION WIDTH 18.9 % (11.6-13.7); WHITE BLOOD COUNT (AUTO) 12.4 K/uL (4.8-10.8)
--- NOTE | 2019-05-30 07:20 | NUR ---
RECEIVED REPORT FROM AGRICULTURAL LABOR CAMP MANAGER RN. PT IS SLEEPING, AROUSABLE. PT IS CONFUSED, FOLLOWS SIMPLE COMMAND, DENIES PAIN AT THIS TIME. NO S/S OF DISTRESS ON ROOM AIR. RESPIRATIONS ARE EQUAL AND UNLABORED. LUNG SOUNDS CLEAR. IV CATH ON L FA 20 G RUNNING NS AT 30 ML/HR. 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 SITTER. SKIN WARM AND DRY TO TOUCH. SKIN INTACT. CALL LIGHT WITHIN REACH. BED IN LOCKED IN LOWEST POSITION, FALL PRECAUTIONS IN PLACE.
[2019-05-30 07:22] LABS: ANION GAP 14.3 (8-16); CARBON DIOXIDE 22.9 mmol/L (21-32); CHLORIDE 105 mmol/L (98-107); GLUCOSE 130 mg/dL (74-106); POTASSIUM 4.2 mmol/L (3.5-5.1); SODIUM SERUM 138 mmol/L (136-145); UREA NITROGEN, BLOOD 23 mg/dL (7-18)
--- NOTE | 2019-05-30 07:24 | NUR ---
GAVE BEDSIDE REPORT. PT ENDORSED IN STABLE CONDITION.
[2019-05-30 07:35] LABS: MAGNESIUM 1.9 mg/dL (1.8-2.4); PHOSPHORUS 3.3 mg/dL (2.5-4.9)
[2019-05-30 08:00] VITALS: BP 106/64
[2019-05-30] MEDS: ASCORBIC ACID 500 MG TAB PO SCH (08:07)
[2019-05-30] MEDS: ASPIRIN 81 MG TAB.CHEW PO SCH (08:08)
[2019-05-30] MEDS: LACTOBACILLUS RHAMNOSUS GG 1 EACH CAP PO SCH (08:08)
[2019-05-30] MEDS: DOCUSATE 100 MG/10 ML UDC GT SCH ×2 (08:08→21:22)
[2019-05-30] MEDS: ZINC SULF 220 MG CAP PO SCH (08:08)
--- NOTE | 2019-05-30 08:20 | NUR ---
SCHEDULED MED GIVEN CRUSHED. PT WAS FED FOR BREAKFAST. PT ATE WELL, NO CHOKING OR COUGHING.
--- NOTE | 2019-05-30 08:50 | NUR ---
BED BATH PROVIDED. ALL LINENS CHANGED. PT HAS URINE INCONTINENCE X1. Addendum: 05/30/19 at 1054 by Curtis Rendon RN URINE WAS YELLOW IN COLOR, NO BLOOD NOTED.
[2019-05-30] MEDS: LISINOPRIL 20 MG TAB PO SCH (09:00)
--- NOTE | 2019-05-30 10:53 | NUR ---
PT SLEEPING AT THIS TIME, NO S/S OF DISTRESS.
--- NOTE | 2019-05-30 11:29 | NUR ---
BLADDER SCAN DONE, ONLY 40ML OF URINE. NO RETENTION.
--- NOTE | 2019-05-30 13:04 | NUR ---
PT WAS FED WITH LUNCH. PT ATE GOOD. URINE INCONTINENCE X1, PT WAS CLEANED, CHUX WAS CHANGED.
[2019-05-30 13:07] LABS: BASOPHILS % (AUTO) 0.3 % (0.0-2.0); EOSINOPHILS # (AUTO) 0.1 K/uL (0-0.4); EOSINOPHILS % (AUTO) 0.8 % (0.0-4.0); HEMATOCRIT 34.5 % (36-52); HEMOGLOBIN 11.2 g/dL (12.0-18.0); LYMPHOCYTES # (AUTO) 1.1 K/uL (2.0-11.5); LYMPHOCYTES % (AUTO) 10.4 % (20.5-51.1); MEAN CORPUSCULAR HEMOGLOBIN 26 pg (27-31); MEAN CORPUSCULAR HGB CONC 33 g/dL (33-37); MEAN CORPUSCULAR VOLUME 80.6 fL (80-94); MONOCYTES % (AUTO) 9.1 % (1.7-9.3); NEUTROPHILS # (AUTO) 8.5 K/uL (1.8-7.7); NEUTROPHILS % (AUTO) 79.4 % (42.2-75.2); PLATELET COUNT (AUTO) 210 K/uL (140-450); RED BLOOD CELL COUNT(AUTO) 4.28 MIL/uL (4.20-6.10); RED CELL DISTRIBUTION WIDTH 18.7 % (11.6-13.7); WHITE BLOOD COUNT (AUTO) 10.8 K/uL (4.8-10.8)
--- NOTE | 2019-05-30 13:24 | NUR ---
*S.T. Treatment note* S: Pt seen at bedside, awake, alert. HALEY Acevedo present. Per RN report, pt's daughter was visiting, fed pt lunch, no s/s aspiration. Pt asked dtr to bring him setswana fries, in which RN recommended against and verbalized to dtr. Pt confused but agreeable to take P.O. trials w/ BIKE DESIGNER and was having blood drawn by laborer yard. O: P.O. trials avis cracker (bite sized) and sips of protein shake and juice by straw. A: Pt tolerated well, with no overt s/s aspiration. Pt talked with mouth full prior to initiating swallow due to confusion. Pt appears okay to advance diet to mechanical soft ground diet, continue thin liquids. P: Advance diet to mechanical soft ground diet w/ 1:1 feeder for aspiration precautions. Thin liquids okay. Will continue POC. Endorsed to HALEY Acevedo. Time [id number]
[2019-05-30 16:01] VITALS: BP 144/83
--- NOTE | 2019-05-30 16:20 | NUR ---
RECEIVED CALL FROM SUPERVISORY IT SPECIALIST, JEAN-PIERRE, WHO SAID PT WILL GO BACK TO [facility], SEAFOOD TECHNOLOGY SPECIALIST TIME IS 1300 BY . WILL ENDORSE TO NEXT SHIFT RN. Addendum: 05/30/19 at 1923 by Curtis Rendon RN ENDORSED TO CHARLIE NURSEADRIANNA RN
[2019-05-30] MEDS: NACL 0.9% 1,000 ML IV SCH (16:36)
[2019-05-30] MEDS: MUPIROCIN CA NASAL 2% 1GM TUBE NS SCH (16:39)
[2019-05-30] MEDS: CHLORHEXADINE GLUC 2% CLOTH TP SCH (16:39)
[2019-05-30] MEDS ORDERED: VANCOMYCIN PER PHARMACY MC PRN (18:35)
--- NOTE | 2019-05-30 19:10 | NUR ---
RECEIVED REPORT FROM DAY SHIFT NURSE, HOWARD. PT IS SLEEPING, AROUSABLE. PT IS CONFUSED, FOLLOWS SIMPLE COMMAND, NO S/S OF SOB ON ROOM AIR. RESPIRATIONS ARE EVEN AND UNLABORED. IV SITE ON LFA 20 G RUNNING NS AT 80 ML/HR. 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 SITTER. SKIN WARM AND DRY TO TOUCH. SKIN INTACT. CALL LIGHT WITHIN REACH. BED IN LOW POSITION.
[2019-05-30] MEDS: TAMSULOSIN 0.4 MG CAP PO SCH (21:23)
[2019-05-30] MEDS: OXYBUTYNIN 5 MG TAB PO SCH (21:23)
[2019-05-30] MEDS: OLANZapine 2.5 MG TAB PO SCH (21:24)
--- NOTE | 2019-05-30 21:26 | NUR ---
CHARGE NURSE, ARNAV GIVEN ALL SCHEDULED 2100 MEDICATION MD ORDERED. PT TOLERATED WELL.
--- NOTE | 2019-05-30 22:02 | NUR ---
GIVEN ROCEPHIN MD ORDERED. PT TOLERATED WELL.
--- NOTE | 2019-05-30 22:19 | NUR ---
ENDORSED PT TO HALEY POE, FOR CONTINUOUS CARE. PT IN STABLE CONDITION.
--- NOTE | 2019-05-30 22:20 | NUR ---
RECEIVED REPORT FROM GAVIN. PT IS AWAKE ALERT X2, PT IS CONFUSED,FOLLOW SIMPLE COMMAND, NO S/S OF PAIN OR DISCOMFORT AT THIS TIME. NO S/S OF RESP DISTRESS,NO SOB. CONT ON ROOM AIR. BILATERAL LUNG SOUND CLEAR.ABD SOFT NON DISTENDED. IV LINE TO LFA NO 20 GAUGE INTACT WELL. IV NS AT 80 ML/HR. PT WITH 1:1 SITTER.SKIN WARM TO TOUCH AND INTACT,PT IS INCONTINENT BOWEL AND BLADDER.GENTLE CARE GIVEN . WILL CONTINUE TO MONITOR.
--- NOTE | 2019-05-30 22:35 | NUR ---
RECEIVED PT FROM HALEY MERCADO. PT IN STABLE CONDITION. Addendum: 05/30/19 at 2300 by Nela Cervantes RN WRONG TIME.
--- NOTE | 2019-05-30 22:54 | NUR ---
ENDORSED PT BACK TO JUUN. PT IN STABLE CONDITION
--- NOTE | 2019-05-30 22:55 | NUR ---
RECEIVED PT FROM HALEY CORDERO. PT IN STABLE CONDITION.
[2019-05-31] VITALS: BP 139/56
--- NOTE | 2019-05-31 00:12 | NUR ---
VS CHECKED, WITHIN PT'S BASELINE. PT C/O PAIN AND ASKING PAIN MEDICATION. PULLED NORCO BUT PT CHANGED MIND. PT WANTED NO PAIN MEDICATION. PT PULLED OUT IV LINE. TRIED TO START NEW IV, PT STRONGLY REFUSED.
--- NOTE | 2019-05-31 02:30 | NUR ---
PT SLEEPING IN BED. RESPIRATORY EVEN AND UNLABORED. NO ACUTE DISTRESS NOTED. WILL CONTINUE TO MONITOR.
[2019-05-31] MEDS: NACL 0.9% 1,000 ML IV SCH (04:45)
--- NOTE | 2019-05-31 05:00 | NUR ---
PT SLEEPING IN BED. RESPIRATORY EVEN AND UNLABORED. NO ACUTE DISTRESS NOTED. WILL CONTINUE TO MONITOR.
--- NOTE | 2019-05-31 07:00 | NUR ---
PT SLEEPING IN BED. NO ACUTE DISTRESS NOTED.
--- NOTE | 2019-05-31 07:25 | NUR ---
Received report from pm nurse Evaristo. Pt asleep in bed, respirations even & nonlabored, FLACC 0, pt arousable by auditory stimuli. Bed alarm on. Call light within reach.
[2019-05-31 07:33] LABS: BASOPHILS % (AUTO) 0.2 % (0.0-2.0); EOSINOPHILS # (AUTO) 0.2 K/uL (0-0.4); EOSINOPHILS % (AUTO) 1.7 % (0.0-4.0); HEMATOCRIT 31.4 % (36-52); HEMOGLOBIN 10.1 g/dL (12.0-18.0); LYMPHOCYTES # (AUTO) 0.9 K/uL (2.0-11.5); LYMPHOCYTES % (AUTO) 8.8 % (20.5-51.1); MEAN CORPUSCULAR HEMOGLOBIN 26 pg (27-31); MEAN CORPUSCULAR HGB CONC 32 g/dL (33-37); MONOCYTES # (AUTO) 0.9 K/uL (0.8-1.0); MONOCYTES % (AUTO) 9.2 % (1.7-9.3); NEUTROPHILS # (AUTO) 7.9 K/uL (1.8-7.7); NEUTROPHILS % (AUTO) 80.1 % (42.2-75.2); PLATELET COUNT (AUTO) 205 K/uL (140-450); RED BLOOD CELL COUNT(AUTO) 3.92 MIL/uL (4.20-6.10); RED CELL DISTRIBUTION WIDTH 18.7 % (11.6-13.7); WHITE BLOOD COUNT (AUTO) 9.8 K/uL (4.8-10.8)
[2019-05-31 08:00] VITALS: BP 109/54
[2019-05-31 08:07] LABS: MAGNESIUM 1.8 mg/dL (1.8-2.4); PHOSPHORUS 3.3 mg/dL (2.5-4.9)
[2019-05-31 08:10] LABS: ANION GAP 12.2 (8-16); CHLORIDE 107 mmol/L (98-107); CREATININE 0.9 mg/dL (0.7-1.3); GLUCOSE 122 mg/dL (74-106); POTASSIUM 4.2 mmol/L (3.5-5.1); SODIUM SERUM 138 mmol/L (136-145); UREA NITROGEN, BLOOD 21 mg/dL (7-18)
[2019-05-31] MEDS: ZINC SULF 220 MG CAP PO SCH (08:37)
[2019-05-31] MEDS: LACTOBACILLUS RHAMNOSUS GG 1 EACH CAP PO SCH (08:37)
[2019-05-31] MEDS: DOCUSATE 100 MG/10 ML UDC GT SCH (08:37)
[2019-05-31] MEDS: ASPIRIN 81 MG TAB.CHEW PO SCH (08:38)
[2019-05-31] MEDS: ASCORBIC ACID 500 MG TAB PO SCH (08:38)
[2019-05-31] MEDS: LISINOPRIL 20 MG TAB PO SCH (08:45)
[2019-05-31] MEDS ORDERED: TAMS0.4C96 PO (09:16)
[2019-05-31] MEDS ORDERED: FERR325E14 PO (09:16)
[2019-05-31] MEDS ORDERED: SODIUM FERRIC GLUCONATE 125 MG in NACL 0.9% 100 ML IV SCH (09:30)
--- NOTE | 2019-05-31 10:08 | NUR ---
Ferrlecit not given d/t no IV access. Pt gets agitated & refuses to have IV insertion. Dr Reid notified & states ok to hold ferrlecit.
--- NOTE | 2019-05-31 10:58 | NUR ---
Report given to Josselin DE LEON at [facility]. Inquired about pt's vaccine info, but per Josselin med records are not available at this time. SNF agree to f/u FLU vac admin with family upon admission to facility. Per Josselin, pt to return to room 38B under care of Dr Miguel.
--- NOTE | 2019-05-31 11:15 | NUR ---
Left voicemail for Mayco Brown, III (son) re: discharge plan.
[2019-05-31 12:14] LABS: FOLIC ACID 6.1 ng/mL (>3.0)
--- NOTE | 2019-05-31 12:30 | NUR ---
Pt in high-fowlers in bed, eating lunch with assist by NEEDLE LOOM WEAVER. No signs of distress, no c/o discomfort.
--- NOTE | 2019-05-31 13:08 | NUR ---
Call Mayco Brown, III (son) again, no pick-up. Left voicemail to call [facility] if any questions re: discharge plan today.
--- NOTE | 2019-05-31 16:28 | NUR ---
Pt left unit via gurney with 2 chicken hatchery helper from [facility] for discharge to [facility]. Pt aaox1, verbally responsive, no signs of distress, pt stable. No belongings present at bedside.
[2019-05-31] MEDS ORDERED: FERROUS SULFATE 325 MG TABEC PO SCH (17:00)
== END 2019-05-31 16:28 | DRG 56 ==
LOC: MED 15:01 → MTU 18:28
PROVIDERS: ADMIT General Practice; ATTEND General Practice
DX: G30.9 Alzheimer's disease, unspecified (principal); G93.41 Metabolic encephalopathy; E87.1 Hypo-osmolality and hyponatremia; N12 Tubulo-interstitial nephritis, not specified as acute or chronic; F02.80 Dementia in other diseases classified elsewhere, unspecified severity, without behavioral disturbance, psychotic disturbance, mood disturbance, and anxiety; I10 Essential (primary) hypertension; M16.12 Unilateral primary osteoarthritis, left hip; N40.0 Benign prostatic hyperplasia without lower urinary tract symptoms; Z66 Do not resuscitate; E02 Subclinical iodine-deficiency hypothyroidism; N32.81 Overactive bladder; M47.816 Spondylosis without myelopathy or radiculopathy, lumbar region; M47.817 Spondylosis without myelopathy or radiculopathy, lumbosacral region; F43.9 Reaction to severe stress, unspecified; E83.42 Hypomagnesemia; D64.9 Anemia, unspecified; Z79.82 Long term (current) use of aspirin; Z79.899 Other long term (current) drug therapy
CPT/HCPCS: 36415; 51702; 71045; 72192; 73502; 80048; 80053; 81001; 82150; 82272; 82607; 82728; 82746; 83036; 83540; 83605; 83690; 83735; 83880; 84100; 84439; 84443; 84484; 85025; 85045; 85610; 85730; 87040; 87081; 87086; 92526; 93005; 96365; 96375; 99285; J0696; J1630; J1644; J1885; J1956; J2060; J2270; J2916; J3475; J7030; J7042; J7060; Q0092

== ENCOUNTER 2019-06-20 09:55 | Emergency (ER) | payer OTHER ==
[~2019-06-20] VITALS: Ht 170.2 cm; Wt 81.6 kg
[~2019-06-20 09:55] MED LIST changes: +ACET-2619 PO; +ASCO500W4 PO; +DIT5 PO; +FERR325E14 PO; -FLONAS NS; -GUAI-791 PO; +MULT15LI1 GT; -PYRI-218 PO; -RANI150T8 PO; +ZINC220C12 PO
--- NOTE | 2019-06-20 09:55 | NUR ---
Patient KELSEY LUJANS from SNF, transferred to bed 11. RN evaluating patient at bedside.
[2019-06-20 09:56] VITALS: BP 125/57
--- NOTE | 2019-06-20 09:56 | NUR ---
Dr. Salas evaluating patient at bedside.
[2019-06-20] MEDS ORDERED: LIDOCAINE MPF 1% 10 MG/ML VIAL INJ ONE (10:10)
--- NOTE | 2019-06-20 10:15 | NUR ---
PATIENT BIB AMBULANCE FROM [facility] C/O FALL, LACERATION TO LEFT EYEBROW. PT EXPERIENCED NO LOSS OF CONSICOUSNESS. BRUISE NOTED ON RIGHT AXILLARY. PATIENT IS ORIENTED TO ONLY NAME. HR EVEN AND REGULAR; PATIENT STATES PAIN OF 5/10 AT THIS TIME; PATIENT POSITIONED FOR COMFORT; HOB ELEVATED; BEDRAILS UP X2; BED DOWN. ER MD MADE AWARE OF PT STATUS. HX: HTN, DM, ALZHEIMERS NKA Addendum: 06/20/19 at 1021 by [email or web address] LEFT LEG PITTING EDEMA +2
--- NOTE | 2019-06-20 10:23 | NUR ---
PT TAKEN TO CT VIA GUBEULAH,ACCOMPANIED BY COMPOSITE BOND TECHNICIAN.
--- NOTE | 2019-06-20 10:24 | NUR ---
Clifton herrera in ED - 06/20/19 at 1232 by [email or web address] PT RETURNED FROM CT VIA DONALD
--- NOTE | 2019-06-20 10:43 | NUR ---
PT RETURNED FROM CT VIA [facility].
--- NOTE | 2019-06-20 11:03 | NUR ---
PT IS OBSERVED TALKING TO HIMSELF. PT IS UNABLE TO ANSWER QUESTIONS SUCH NAME AND WHERE HE IS.
--- NOTE | 2019-06-20 12:32 | NUR ---
PT STATES HE WANTS TO WALK TO RESTROOM. INSTRUCTED PT TO USE URINAL BECAUSE WE DONT WANT HIM TO HAVE ANOTHER FALL. PT VERBALIZED UNDERSTANDING.
--- NOTE | 2019-06-20 13:41 | NUR ---
[facility] at bedside for return transfer.
--- NOTE | 2019-06-20 13:53 | NUR ---
CALLED [facility] AND GAVE REPORT TO LEANNE INFORMED LEANNE THAT TRANSPORT IS AT [facility]
[2019-06-20 13:54] VITALS: BP 123/55
--- NOTE | 2019-06-20 13:54 | NUR ---
Patient discharged with v/s stable. REPORT, Written and verbal after care instructions given and explained TO TRANSPORT TEAM. Ambulance Transport with to [facility]. All questions addressed prior to discharge. Advised to follow up with PMD. TRANPORT TEAM SIGNED DISCHARGE PAPERWORK
== END 2019-06-20 13:54 ==
LOC: MED 09:55
DX: S01.112A Laceration without foreign body of left eyelid and periocular area, initial encounter (principal); I10 Essential (primary) hypertension; F03.90 Unspecified dementia, unspecified severity, without behavioral disturbance, psychotic disturbance, mood disturbance, and anxiety; E11.9 Type 2 diabetes mellitus without complications; Z79.82 Long term (current) use of aspirin; Z79.891 Long term (current) use of opiate analgesic; Z79.899 Other long term (current) drug therapy; W18.39XA Other fall on same level, initial encounter; Y93.89 Activity, other specified; Y92.89 Other specified places as the place of occurrence of the external cause; Y99.8 Other external cause status
CPT/HCPCS: 12011; 70450; 72125; 99284; J2001